=== PATIENT | female | born 1960 | race Caucasian/White ===

== ENCOUNTER 2025-01-27 15:03 | Emergency (ER) | payer MEDICARE | END 2025-01-27 16:58 | disposition home or self-care (01) | LOC: JP.ED 15:03 | DX: S61.213A Laceration without foreign body of left middle finger without damage to nail, initial encounter (principal); W26.8XXA Contact with other sharp object(s), not elsewhere classified, initial encounter | CPT/HCPCS: 12001; 99282 ==

== ENCOUNTER 2025-02-24 16:10 | Emergency (ER) | payer MEDICARE ==
[2025-02-24] MEDS: Bacitracin Oint 1 GM U/D Packet TOP ONE (17:10)
[2025-02-24] MEDS: Doxycycline 100 MG Cap PO ONE (17:10)
== END 2025-02-24 17:15 | disposition home or self-care (01) ==
LOC: JP.ED 16:10
DX: S70.261A Insect bite (nonvenomous), right hip, initial encounter (principal); Z86.16 Personal history of COVID-19; W57.XXXA Bitten or stung by nonvenomous insect and other nonvenomous arthropods, initial encounter
CPT/HCPCS: 99281; A9270